=== PATIENT | female | born 1965 | race Hispanic/Latino ===

== ENCOUNTER 2018-01-31 08:09 | Day surgery (SDC) | payer MEDICARE, MEDICAID ==
[2018-01-30 12:05] VITALS: BMI 23.6
[2018-01-31] MEDS ORDERED: Midazolam HCl 2 mg/2 ml Vial ONE (09:58)
--- NOTE | 2018-01-31 12:34 | OP ---
DATE OF PROCEDURE: 01/31/2018 PROCEDURE: Colonoscopy with polypectomy. INDICATION FOR PROCEDURE: Screening for malignant neoplasm of the colon, no family history of GI mal ignancy/colon cancer. DESCRIPTION OF PROCEDURE: After the risks and the benefits of the procedure were explained to the wendy brown's surrogate including risks of bleeding, infection, perforation, reaction to anesthesia and/or pain, informed consent was obtained. The patient was then taken to the endoscopy suite where deep se dation was administered via propofol and anesthesia support. The standard colonoscope was then intro duced into the rectum and advanced to the terminal ileum without difficulty. The quality of the prep was good. The patient tolerated the procedure well with no immediate perioperative complications. DIGITAL RECTAL EXAM: Large perianal skin tag/hypertrophied papillae was seen on external examination . No external hemorrhoids were noted. COLON FINDINGS: Normal appearing mucosa was seen in the terminal ileum. A blackish hue was seen thr oughout the entire colon in a mosaic pattern resembling leopard skin without any additional abnormali ties. This was seen throughout the entire colon. Otherwise, normal appearing mucosa was seen at the ileocecal valve and appendiceal orifice and 8-9 mm sessile polyp was seen in the cecum and completel y removed with hot snare cautery polypectomy. It was retrieved and placed in specimen jar for evalua tion. Normal mucosa was seen in the ascending, transverse, descending, sigmoid colon, and rectum. N ormal appearing mucosa was seen on rectal retroflexion. IMPRESSION: 1. An 8-9 mm cecal polyp, completely removed with snare cautery polypectomy. 2. [id number] pancolonic melanosis coli. 3. Large perianal skin tag/hypertrophied anal papillae. RECOMMENDATIONS: 1. We will follow up on the polypectomy results with repeat colonoscopy depending on pathology resul t. 2. We will continue patient on current bowel regimen including bisacodyl and MiraLax for chronic con stipation. 3. Follow up in the GI Clinic as needed.
[2018-01-31] MEDS ORDERED: Lidocaine 1% PF 5 ML VIAL ONE (13:08)
[2018-01-31] MEDS ORDERED: PROPOFOL 200 MG/20 ML VIAL ONE (13:08)
== END 2018-01-31 12:18 | disposition home or self-care (01) ==
LOC: SDC 08:09
PROVIDERS: ATTEND Internal Medicine
PROC: 0DBH8ZX Excision of Cecum, Via Natural or Artificial Opening Endoscopic, Diagnostic (ICD-10-PCS; principal; 2018-01-31)
DX: Z12.11 Encounter for screening for malignant neoplasm of colon (principal); D12.0 Benign neoplasm of cecum; K64.4 Residual hemorrhoidal skin tags; K63.89 Other specified diseases of intestine; I10 Essential (primary) hypertension; G40.409 Other generalized epilepsy and epileptic syndromes, not intractable, without status epilepticus; G80.0 Spastic quadriplegic cerebral palsy; E55.9 Vitamin D deficiency, unspecified; K59.09 Other constipation; R15.9 Full incontinence of feces; R32 Unspecified urinary incontinence; F73 Profound intellectual disabilities; M85.80 Other specified disorders of bone density and structure, unspecified site; Z79.899 Other long term (current) drug therapy
CPT/HCPCS: 88305; J2001; J2250; J2704

== ENCOUNTER 2023-07-26 06:04 | Day surgery (SDC) | payer MEDICARE, MEDICAID ==
[2023-06-01 11:49] VITALS: BMI 25.0
[2023-07-26] MEDS ORDERED: PROPOFOL 200 MG/20 ML VIAL ONE (08:48)
[2023-07-26] MEDS ORDERED: Lidocaine 1% PF 5 ML VIAL ONE (08:48)
[2023-07-26] MEDS ORDERED: PHENYLEPHRINE-NS 100 MCG/ML 10 ML SYRINGE ONE (08:48)
[2023-07-26] MEDS ORDERED: ePHEDrine Sulfate 50 MG/10 ML VIAL ONE (08:48)
== END 2023-07-26 10:10 | disposition short-term general hospital (02) ==
LOC: SDC 06:04
PROVIDERS: ATTEND Internal Medicine
PROC: 0DBH8ZZ Excision of Cecum, Via Natural or Artificial Opening Endoscopic (ICD-10-PCS; principal; 2023-07-26)
DX: Z12.11 Encounter for screening for malignant neoplasm of colon (principal); D12.0 Benign neoplasm of cecum; K64.8 Other hemorrhoids; K21.9 Gastro-esophageal reflux disease without esophagitis; I10 Essential (primary) hypertension; G40.909 Epilepsy, unspecified, not intractable, without status epilepticus; Z79.899 Other long term (current) drug therapy; Z86.010 Personal history of colon polyps
CPT/HCPCS: 88305; J2704